=== PATIENT | female | born 1995 | race Caucasian/White ===

== ENCOUNTER → 2021-09-12 16:19 | Outpatient (CLI) | payer OTHER, SELFPAY ==
--- NOTE | ~2021-09-12 | XR_ITS ---
EXAMINATION: XR ankle RT min 3V DATE: 09/12/2021 16:39 INDICATION: Right ankle pain. TECHNIQUE: 4 views of right ankle were obtained. COMPARISON: None. FINDINGS: Bone alignment is normal. No fracture. Joint spaces are well maintained. IMPRESSION: 1. Normal right ankle. Reviewed, dictated and finalized at location A. IMPRESSION: 1. Normal right ankle.
== END ==
PROVIDERS: PCP Family Medicine; Visit Provider Family Medicine
DX: M25.571 Pain in right ankle and joints of right foot (principal)
CPT/HCPCS: 73610

== ENCOUNTER 2023-02-15 08:21 | Emergency (ER) | payer OTHER, SELFPAY ==
[2023-02-15 08:33] VITALS: BP 112/64; PULSE 80; RESP 12; TEMP 36.3; O2SAT 100
--- NOTE | 2023-02-15 08:42 | ED.EYEPROB ---
HPI - Eye Problem General Chief complaint: Eye Problems Stated complaint: Right Eye Irritation Time Seen by Provider: 02/15/23 08:42 Source: patient Mode of arrival: ambulatory Limitations: no limitations History of Present Illness HPI Narrative: 27-year-old female presents with complaint right eye itching, redness and drainage for 2 days. No vision changes. Patient is concerned for pinkeye. Does not were contacts. No trauma. All systems reviewed and negative except as noted above. Related Data Home Medications Medication Instructions Recorded Confirmed fluticasone propionate 50 1 spray intranasal DAILY 07/19/21 02/15/23 mcg/actuation nasal spray,suspension (Flonase Allergy Relief) levonorgestrel 21 mcg/24 hours (8 1 insert intrauterine ONCE 07/19/21 02/15/23 yrs) 52 mg intrauterine device (Mirena) cholecalciferol (vitamin D3) 50 50 mcg PO DAILY 09/12/21 02/15/23 mcg (2,000 unit) capsule multivitamin 1 tablet PO DAILY 09/12/21 02/15/23 cetirizine 10 mg capsule (Zyrtec) 10 mg PO DAILY 08/26/22 02/15/23 lactobacillus combination no.8 3 1 cell DAILY 02/15/23 02/15/23 billion cell capsule Allergies Allergy/AdvReac Type Severity Reaction Status Date / Time benzoyl peroxide Allergy Rash Verified 02/15/23 08:37 Review of Systems Review of Systems: CONSTITUTIONAL: Denies fever, chills, or sweats. EYES: Denies visual changes Redness redness, discharge, itching right eye. ENT: Denies rhinorrhea, congestion, sore throat, or otalgia. CARDIOVASCULAR: Denies chest pain, palpitations, or edema. RESPIRATORY: Denies cough or dyspnea. GASTROINTESTINAL: Denies abdominal pain, nausea, vomiting, or diarrhea. GENITOURINARY: Denies dysuria or hematuria. SKIN: Denies rash or itching. MUSCULOSKELETAL: Denies back pain, joint pain, or myalgia. NEUROLOGIC: Denies headache, numbness, or weakness. PSYCHIATRIC: Denies anxiety or depression. All other systems reviewed are negative, except as documented in HPI. [facility] Past Medical History Medical History Seasonal allergies Surgical History Surgical History [place] teeth removed Family History Family History Sibling Anxiety Father In good health Mother In good health Grandparent Diabetes mellitus Hypertension Skin cancer Heart disease Sibling Family history of mental disorder Mother Family history of migraine headaches Patient's mother is in good health Grandparent Hypertension Family history of type 2 diabetes mellitus Father Patient's father is in good health Social History Social History (Updated 01/28/23 @ 09:19 by Suki Brewer [facility]) Smoking status: Never smoker Second hand tobacco smoke exposure: No Alcohol intake: current Alcohol use details: social Substance use: never Substance use type: does not use Lack of Transportation: No Lack of Food: Never True Current Housing: I Have Housing Concerned About Future Housing: No Difficulty Paying Gas/Electric Bills: No Difficulty Paying for Meds: No Currently Unemployed: No Education: Master's Degree or Higher Difficulty w/ Childcare or Family Care: No Living arrangements: with family Occupation/Education: occupation Gender identity (if verbalized by the patient): Female Sexual Orientation (if Verbalized by the Patient): Straight or Heterosexual Comments At time of signature, agree with nursing past medical, surgical, social and family history. There is no relevant family history pertinent to the presenting complaint. Exam Narrative: GENERAL: This is a well-nourished, well-developed patient, in no apparent distress. HEAD: normocephalic, atraumatic. EYES: PERRL. Sclera and conjunctiva erythematous to right eye with mild swelling. There is a thick white drainage from right
== END 2023-02-15 09:00 | disposition home or self-care (01) ==
PROVIDERS: Emergency Provider Nurse Practitioner Family; PCP Family Medicine
DX: H10.31 Unspecified acute conjunctivitis, right eye (principal)
CPT/HCPCS: 99213; G0463

== ENCOUNTER 2023-09-12 08:25 | Emergency (ER) | payer OTHER, SELFPAY ==
[2023-09-12 08:45] VITALS: BP 134/65; PULSE 78; RESP 18; TEMP 36.8; O2SAT 100
--- NOTE | 2023-09-12 09:23 | ED.EYEPROB ---
HPI - Eye Problem General Chief complaint: Eye Problems Stated complaint: right eye irritated Time Seen by Provider: 09/12/23 09:13 Source: patient and RN notes reviewed Mode of arrival: ambulatory Limitations: no limitations History of Present Illness HPI Narrative: Patient presents today complaining of a 2 day history of right eye irritation, redness, and crusting. The crustiness and drainage is present in the morning and sometimes in the evenings. Patient states she does not have drainage or crusting throughout the day. She has been using clear eyes eyedrops with mild relief. No recent illness. No foreign body sensation. Related Data Home Medications Medication Instructions Recorded Confirmed fluticasone propionate 50 1 spray intranasal DAILY 07/19/21 09/12/23 mcg/actuation nasal spray,suspension (Flonase Allergy Relief) levonorgestrel 21 mcg/24 hours (8 1 insert intrauterine ONCE 07/19/21 09/12/23 yrs) 52 mg intrauterine device (Mirena) cholecalciferol (vitamin D3) 50 50 mcg PO DAILY 09/12/21 09/12/23 mcg (2,000 unit) capsule multivitamin 1 tablet PO DAILY 09/12/21 09/12/23 cetirizine 10 mg capsule (Zyrtec) 10 mg PO DAILY 08/26/22 09/12/23 lactobacillus combination no.8 3 1 cell DAILY 02/15/23 09/12/23 billion cell capsule famotidine 10 mg tablet 10 mg PO DAILY 08/13/23 09/12/23 spironolactone 50 mg tablet 50 mg PO BID 08/13/23 09/12/23 rimegepant 75 mg disintegrating 75 mg PO DIRECTED 09/12/23 09/12/23 tablet (Nurtec ODT) Allergies Allergy/AdvReac Type Severity Reaction Status Date / Time benzoyl peroxide Allergy Rash Verified 09/12/23 08:28 Review of Systems Review of Systems: CONSTITUTIONAL: Denies body aches, fever, chills, or sweats. EYES: Denies visual changes. + right eye drainage and redness ENT: Denies rhinorrhea, congestion, sore throat, or otalgia. CARDIOVASCULAR: Denies chest pain, palpitations, or edema. RESPIRATORY: Denies cough or dyspnea. GASTROINTESTINAL: Denies abdominal pain, nausea, vomiting, or diarrhea. GENITOURINARY: Denies dysuria or hematuria. SKIN: Denies rash, itching, or wounds. MUSCULOSKELETAL: Denies back pain, joint pain, or myalgia. NEUROLOGIC: Denies headache, numbness, tingling, or weakness. PSYCH: Denies depression or anxiety. [facility] Past Medical History Medical History Seasonal allergies Surgical History Surgical History [place] teeth removed Family History Family History Sibling Anxiety Father In good health Grandparent Diabetes mellitus Hypertension Skin cancer Heart disease Sibling Family history of mental disorder Mother Family history of migraine headaches Ulcerative colitis Grandparent Hypertension Family history of type 2 diabetes mellitus Father Patient's father is in good health Social History Social History Smoking status: Never smoker Second hand tobacco smoke exposure: No Alcohol intake: current Alcohol use details: social Substance use: current Substance use type: marijuana Other substance usage details: very seldom Lack of Transportation: No Lack of Food: Never True Current Housing: I Have Housing Concerned About Future Housing: No Difficulty Paying Gas/Electric Bills: No Difficulty Paying for Meds: No Currently Unemployed: No Education: Master's Degree or Higher Difficulty w/ Childcare or Family Care: No Living arrangements: with family Occupation/Education: occupation Gender identity (if verbalized by the patient): Female Sexual Orientation (if Verbalized by the Patient): Straight or Heterosexual Comments At time of signature, I have reviewed and agree with nursing past medical, surgical, social and family histo
== END 2023-09-12 09:30 | disposition home or self-care (01) ==
PROVIDERS: Emergency Provider Nurse Practitioner; PCP Family Medicine
DX: H10.31 Unspecified acute conjunctivitis, right eye (principal); F12.90 Cannabis use, unspecified, uncomplicated
CPT/HCPCS: 99211; G0463

== ENCOUNTER 2024-03-08 14:20 | Outpatient (CLI) | payer OTHER, SELFPAY ==
--- NOTE | ~2024-03-08 | XR_ITS ---
XR knee LT 3V 03/08/2024 14:34 INDICATION: Left knee pain PROCEDURE: 3 views left knee COMPARISON: No prior studies for comparison. FINDINGS: Fracture, dislocation or subluxation is not identified. The soft tissues appear within norm al limits. No foreign bodies are identified. IMPRESSION: 1: NO ACUTE BONE OR JOINT ABNORMALITY IDENTIFIED. Reviewed, dictated and finalized at location B.
== END 2024-03-08 14:21 ==
PROVIDERS: PCP Family Medicine; Visit Provider Physician Assistant
DX: M25.562 Pain in left knee (principal)
CPT/HCPCS: 73562

== ENCOUNTER 2024-11-05 08:42 | Emergency (ER) | payer OTHER, SELFPAY ==
[2024-11-05 08:47] VITALS: BP 118/63; PULSE 79; RESP 16; TEMP 36.6; O2SAT 100
--- NOTE | 2024-11-05 09:06 | ED.URI ---
HPI - URI/Sore Throat General Chief Complaint: Upper Respiratory Infection Stated Complaint: Sinus Time Seen by Provider: 11/05/24 09:06 Source: patient Mode of arrival: ambulatory Limitations: no limitations History of Present Illness HPI Narrative: 29-year-old female presents with complaint nasal congestion, postnasal drainage, sinus pressure, sinus headaches for 2-3 weeks. Patient takes Singulair, Zyrtec, nasal spray daily. History of multiple bacterial sinusitis. Afebrile. Has tried [id number] DayQuil and NyQuil cold and Sinus with no relief of pressure. All systems reviewed and negative except as noted above. Related Data Home Medications ?Medication ?Instructions ?Recorded ?Confirmed ?Last Taken ?Type fluticasone propionate 50 1 spray intranasal DAILY 07/19/21 11/05/24 Unknown History mcg/actuation nasal spray,suspension (Flonase Allergy Relief) levonorgestrel (Mirena) 1 insert intrauterine ONCE 07/19/21 11/05/24 Unknown History cholecalciferol (vitamin D3) 50 50 mcg PO DAILY 09/12/21 11/05/24 Unknown History mcg (2,000 unit) capsule multivitamin 1 tablet PO DAILY 09/12/21 11/05/24 Unknown History cetirizine 10 mg capsule (Zyrtec) 10 mg PO DAILY 08/26/22 11/05/24 Unknown History lactobacillus combination no.8 3 1 cell DAILY 02/15/23 03/07/24 Unknown History billion cell capsule famotidine 10 mg tablet 10 mg PO DAILY 08/13/23 11/05/24 Unknown History spironolactone 50 mg tablet 50 mg PO BID 08/13/23 11/05/24 Unknown History rimegepant 75 mg disintegrating 75 mg PO DIRECTED 09/12/23 11/05/24 Unknown History tablet (Nurtec ODT) Allergies Allergy/AdvReac Type Severity Reaction Status Date / Time benzoyl peroxide Allergy Rash Verified 11/05/24 09:11 Review of Systems Review of Systems: CONSTITUTIONAL: Denies fever, chills, or sweats. reports fatigue. EYES: Denies visual changes, redness, or discharge. ENT: reports rhinorrhea, congestion, sinus pressure, postnasal drainage. Denies sore throat, or otalgia. CARDIOVASCULAR: Denies chest pain, palpitations, or edema. RESPIRATORY: Denies cough or dyspnea. GASTROINTESTINAL: Denies abdominal pain, nausea, vomiting, or diarrhea. GENITOURINARY: Denies dysuria or hematuria. SKIN: Denies rash or itching. MUSCULOSKELETAL: Denies back pain, joint pain, or myalgia. NEUROLOGIC: Denies headache, numbness, or weakness. PSYCHIATRIC: Denies anxiety or depression. All other systems reviewed are negative, except as documented in HPI. PMFSH Past Medical History Medical History Seasonal allergies Surgical History Surgical History [place] teeth removed Family History Family History Sibling Anxiety Father In good health Grandparent Diabetes mellitus Hypertension Skin cancer Heart disease Sibling Family history of mental disorder Mother Family history of migraine headaches Ulcerative colitis Grandparent Hypertension Family history of type 2 diabetes mellitus Father Patient's father is in good health Social History Social History Smoking status: Never smoker Second hand tobacco smoke exposure: No Alcohol intake: current Alcohol use details: social Substance use: current Substance use type: marijuana Other substance usage details: very seldom Lack of Transportation: No Lack of Food: Never True Current Housing: I Have Housing Concerned About Future Housing: No Difficulty Paying Gas/Electric Bills: No Difficulty Paying for Meds: No Currently Unemployed: No Education: Master's Degree or Higher Difficulty w/ Childcare or Family Care: No Living arrangements: with family Occupation/Education: occupation Gender identity (if verbalized by the patient): Female Sexual Orientation (if Verbalized by the Patient): Straight or Heterosexual Comments At time of signature, agree with nursing past medical, surgical, social and family history. There is no relevant family history pertinent to the presenting complaint. Exam Narrative: GENERAL: This is a well-nourished, well-developed patient, in no apparent distress. HEAD: normocephalic, atraumatic. EYES: PERRL. Sclera clear/white. Vision is grossly intact. EARS: External ears normal, auditory canals clear and without drainage, TMs normal without perforation. Hearing grossly intact. NOSE: External nose normal with Purulent nasal drainage, mild congestion, tenderness to maxillary sinus on palpation THROAT: Mucous membranes moist, erythema with postnasal drainage NECK: Neck supple, non-tender without lymphadenopathy, masses or thyromegaly. CARDIOVASCULAR: Regular rate and rhythm without murmurs, gallops, or rubs. RESPIRATORY: Clear to auscultation. Breath sounds equal bilaterally. No wheezes, rales, or rhonchi. SKIN: warm, Dry, intact with no suspicious lesions or rash, good texture and turgor. NEURO: awake, alert, and oriented to person, place and time. There were no obvious focal neurologic abnormalities. EXTREMITIES: No joint tenderness, effusion, or edema noted. Course Course Level of Care: Express Care Visit Vital Signs Vital signs: Vital Signs Temperature 36.6 C 11/05/24 08:47 Pulse Rate 79 11/05/24 08:47 Respiratory Rate 16 11/05/24 08:47 Blood Pressure 118/63 11/05/24 08:47 Pulse Oximetry 100 11/05/24 08:47 Oxygen Delivery Room Air 11/05/24 08:47 Temperature 36.6 C 11/05/24 08:47 Pulse Rate 79 11/05/24 08:47 Respiratory Rate 16 11/05/24 08:47 Blood Pressure 118/63 11/05/24 08:47 Pulse Oximetry 100 11/05/24 08:47 Oxygen Delivery Room Air 11/05/24 08:47 reviewed MDM - URI/Sore Throat MDM Narrative Medical decision making narrative: Patient is aware of diagnosis, understands and agrees to treatment plan. Anticipatory guidance given. Patient agrees to follow-up as directed and is aware of reasons to seek care at the emergency department. Portions of this record may have been created with voice recognition software Discharge Plan Discharge Clinical Impression: Acute bacterial sinusitis Patient Disposition: Home, Self-Care Condition: Stable Instructions: Antibiotic Form, Sinusitis (ED) Additional Instructions: take antibiotic as prescribed until gone. Continue taking [id number] daily allergy medications. Take Tylenol or ibuprofen every 6-8 hours as needed for pain and fever. Drink at least 64 oz of water a day. Place cool mist humidifier in bedroom where you sleep. Follow-up with your primary care physician if symptoms are not improving. Patient Language: Czech Prescriptions: New amoxicillin 875 mg tablet 875 mg PO Q12H 7 Days Qty: 14 0RF No Action Adult Probiotic 3 billion cell Capsule 1 cell DAILY Nurtec ODT 75 mg tablet,disintegrating 75 mg PO DIRECTED Zyrtec 10 mg capsule 10 mg PO DAILY cholecalciferol (vitamin D3) 50 mcg (2,000 unit) capsule 50 mcg PO DAILY multivitamin Tablet 1 tablet PO DAILY Mirena 20 mcg/24 hours (6 yrs) 52 mg intrauterine device 1 insert intrauterine ONCE Rx Instructions: as a single dose fluticasone propionate [Flonase Allergy Relief] 50 mcg/actuation spray,suspension 1 spray intranasal DAILY Rx Instructions: administer into each nostril spironolactone 50 mg tablet 50 mg PO BID famotidine 10 mg tablet 10 mg PO DAILY neomycin-polymyxin B-dexameth 3.5mg/mL-10,000 unit/mL-0.1 % drops,suspension 1 drp EACH EYE Q6H Qty: 5 0RF montelukast 10 mg tablet 10 mg PO DAILY Qty: 30 5RF Follow-up/Referrals: Conchita St MD [Primary Care Provider] - Time of Disposition: 09:13
== END 2024-11-05 09:20 | disposition home or self-care (01) ==
PROVIDERS: Emergency Provider Nurse Practitioner Family; PCP Family Medicine
DX: J01.90 Acute sinusitis, unspecified (principal); B96.89 Other specified bacterial agents as the cause of diseases classified elsewhere; Z79.899 Other long term (current) drug therapy
CPT/HCPCS: 99213; G0463

== ENCOUNTER 2025-04-07 14:33 | Emergency (ER) | payer OTHER, SELFPAY ==
[2025-04-07 14:44] VITALS: BP 94/63; PULSE 96; RESP 20; TEMP 36.7; O2SAT 99
--- NOTE | 2025-04-07 14:52 | ED_ITS ---
HPI - URI/Sore Throat General Chief Complaint: Upper Respiratory Infection Stated Complaint: Sinus Time Seen by Provider: 04/07/25 15:05 Source: patient and RN notes reviewed Mode of arrival: ambulatory Limitations: no limitations History of Present Illness HPI Narrative: 29-year-old female presents with concern for scratchy throat, sinus pressure, postnasal drainage. She reports history of allergies, she gets allergy shots. She has not taken any extra medications for the symptoms. MD elicited complaint: rhinorrhea Related Data Home Medications ?Medication ?Instructions ?Recorded ?Confirmed ?Last Taken ?Type fluticasone propionate 50 1 spray intranasal DAILY 07/19/21 11/05/24 Unknown History mcg/actuation nasal spray,suspension (Flonase Allergy Relief) levonorgestrel (Mirena) 1 insert intrauterine ONCE 07/19/21 11/05/24 Unknown History cholecalciferol (vitamin D3) 50 50 mcg PO DAILY 09/12/21 11/05/24 Unknown History mcg (2,000 unit) capsule multivitamin 1 tablet PO DAILY 09/12/21 11/05/24 Unknown History cetirizine 10 mg capsule (Zyrtec) 10 mg PO DAILY 08/26/22 11/05/24 Unknown History lactobacillus combination no.8 3 1 cell DAILY 02/15/23 03/07/24 Unknown History billion cell capsule famotidine 10 mg tablet 10 mg PO DAILY 08/13/23 11/05/24 Unknown History spironolactone 50 mg tablet 50 mg PO BID 08/13/23 11/05/24 Unknown History rimegepant 75 mg disintegrating 75 mg PO DIRECTED 09/12/23 11/05/24 Unknown History tablet (Nurtec ODT) Allergies Allergy/AdvReac Type Severity Reaction Status Date / Time benzoyl peroxide Allergy Rash Verified 04/07/25 14:52 Review of Systems Review of Systems: CONSTITUTIONAL: Denies malaise, chills, sweats, or fever. EYES: Denies visual changes, redness, or discharge. ENT: Reports rhinorrhea, congestion, sinus pain, otalgia and sore throat. CARDIOVASCULAR: Denies chest pain, palpitations, or edema. RESPIRATORY: Reports cough. Denies dyspnea. GASTROINTESTINAL: Denies abdominal pain, nausea, vomiting, diarrhea SKIN: Denies rash or itching. MUSCULOSKELETAL: Denies myalgia. NEUROLOGIC: Denies headache. All systems reviewed & are unremarkable except as noted in HPI and below PMFSH Past Medical History Medical History Seasonal allergies Surgical History Surgical History [place] teeth removed Family History Family History Sibling Anxiety Father In good health Grandparent Diabetes mellitus Hypertension Skin cancer Heart disease Sibling Family history of mental disorder Mother Family history of migraine headaches Ulcerative colitis Grandparent Hypertension Family history of type 2 diabetes mellitus Father Patient's father is in good health Social History Social History Smoking status: Never smoker Second hand tobacco smoke exposure: No Alcohol intake: current Alcohol use details: social Substance use: current Substance use type: marijuana Other substance usage details: very seldom Lack of Transportation: No Lack of Food: Never True Current Housing: I Have Housing Concerned About Future Housing: No Difficulty Paying Gas/Electric Bills: No Difficulty Paying for Meds: No Currently Unemployed: No Education: Master's Degree or Higher Difficulty w/ Childcare or Family Care: No Living arrangements: with family Occupation/Education: occupation Gender identity (if verbalized by the patient): Female Sexual Orientation (if Verbalized by the Patient): Straight or Heterosexual Comments At time of signature, agree with nursing past medical, surgical, social and family history. There is no relevant family history pertinent to the presenting complaint Exam Narrative: GENERAL: Well-appearing, well-nourished, and in no acute distress. HEAD: Normocephalic EYES: PERRLA, conjunctivae clear ENT: Nares clear, turbinates edematous and erythematous, clear discharge. Mucous membranes moist. TM pearly mack with dull light reflex bilaterally; no tragal tenderness. Oropharynx not erythematous without lesions. Tonsils not enlarged and without exudate, no drooling, no hoarseness, no trismus, uvula midline. NECK: Supple. No lymphadenopathy CHEST: Clear to auscultation, breath sounds equal. No wheezing, rhonchi, rales, or stridor. No respiratory distress, speaks in full sentences. HEART: Regular rate and rhythm. No murmur heard. SKIN: Warm, dry, no rash. NEURO: Alert and oriented x3. PSYCH: Normal mood and affect Course Course Emergency Course: Patient is aware of diagnosis, understands and agrees to treatment plan. Anticipatory guidance given. Patient agrees to follow-up as directed and is aware of reasons to seek care at the emergency department. Portions of this record may have been created with voice recognition software Level of Care: Express Care Visit Vital Signs Vital signs: Vital Signs Temperature 98.0 F 04/07/25 14:44 Pulse Rate 96 04/07/25 14:44 Respiratory Rate 20 04/07/25 14:44 Blood Pressure 94/63 L 04/07/25 14:44 Pulse Oximetry 99 04/07/25 14:44 Oxygen Delivery Room Air 04/07/25 14:44 Temperature 98.0 F 04/07/25 14:44 Pulse Rate 96 04/07/25 14:44 Respiratory Rate 20 04/07/25 14:44 Blood Pressure 94/63 L 04/07/25 14:44 Pulse Oximetry 99 04/07/25 14:44 Oxygen Delivery Room Air 04/07/25 14:44 Reviewed. MDM - URI/Sore Throat MDM Narrative Medical decision making narrative: Differential diagnosis considered: Menezes virus, strep pharyngitis, allergic rhinitis, upper respiratory tract infection, sinusitis, rhinosinusitis, nasopharyngitis. viral pharyngitis, otitis media, otitis externa, pneumonia, bronchitis, viral cough syndrome, viral syndrome, and influenza. Exam findings show no acute concerns or changes; patient is non-toxic appearing and is in no d istress. Patient is appropriate for outpatient treatment and follow-up. Lab Data Attestation: I reviewed the patient's lab results. Critical Care Time Critical Care Time Critical Care Time: No Discharge Plan Discharge Clinical Impression: Upper respiratory infection Patient Disposition: Home Condition: Stable Instructions: Upper Respiratory Infection (ED) Additional Instructions: Viral illness may last between 7-21 days; antibiotics do not cure viral illness and are NOT recommended at this time. Recommend antihistamine such as Benadryl at night time and Zyrtec or Mignon during the day Pseudoephedrine as directed Also, recommend symptomatic treatment includes: rest, fluids, and increase humidity of the air at home. Recommend Acetaminophen as directed on the bottle to reduce fever, pain, headache. Avoid smoking/second-hand smoke. Please schedule a follow-up visit with your personal physician for further evaluation and treatment within 3-5days. If your symptoms persist, change or worsen significantly before you can contact your personal physician then please, without delay, go to the emergency department for further evaluation. Patient Language: [place] Prescriptions: New pseudoephedrine HCl [12 Hour Decongestant] 120 mg tablet extended release 120 mg PO Q12H PRN (Reason: nasal congestion) Qty: 20 0RF ipratropium bromide 21 mcg (0.03 %) spray,non-aerosol 2 spray NASAL TID PRN (Reason: nasal drainage) Qty: 30 0RF Rx Instructions: administer into each nostril No Action lactobacillus combination no.8 3 billion cell Capsule 1 cell DAILY Nurtec ODT 75 mg tablet,disintegrating 75 mg PO DIRECTED Zyrtec 10 mg capsule 10 mg PO DAILY cholecalciferol (vitamin D3) 50 mcg (2,000 unit) capsule 50 mcg PO DAILY multivitamin Tablet 1 tablet PO DAILY Mirena 20 mcg/24 hours (6 yrs) 52 mg intrauterine device 1 insert intrauterine ONCE Rx Instructions: as a single dose fluticasone propionate [Flonase Allergy Relief] 50 mcg/actuation spray,suspension 1 spray intranasal DAILY Rx Instructions: administer into each nostril spironolactone 50 mg tablet 50 mg PO BID famotidine 10 mg tablet 10 mg PO DAILY neomycin-polymyxin B-dexameth 3.5mg/mL-10,000 unit/mL-0.1 % drops,suspension 1 drp EACH EYE Q6H Qty: 5 0RF montelukast 10 mg tablet 10 mg PO DAILY Qty: 30 5RF Follow-up/Referrals: Conchita St MD [Primary Care Provider] - Time of Disposition: 15:01
== END 2025-04-07 15:25 | disposition home or self-care (01) ==
PROVIDERS: Emergency Provider Nurse Practitioner; PCP Family Medicine
DX: J06.9 Acute upper respiratory infection, unspecified (principal)
CPT/HCPCS: 99213; G0463